=== PATIENT | male | born 1980 | race Caucasian/White ===

== ENCOUNTER 2016-09-28 21:00 | Emergency (ER) | payer OTHER ==
[~2016-09-28] VITALS: Ht 175.3 cm; Wt 100.0 kg
[~2016-09-28 21:00] MED LIST: ALBU8.5H2 INHALATION
[2016-09-28 21:01] VITALS: BP 157/91; RESP 20; O2SAT 98
--- NOTE | 2016-09-28 21:05 | ED.REPORT ---
HPI-General Illness Date of Service Sep 28, 2016 ED Provider: Aries Seals MD Patient is a 36 year old male with a history of asthma who presents to the ED complaining throat swelling after eating dinner tonight, following 6 months of difficulty swallowing. Tonight, the patient ate a gyro and and something became stuck in his throat. He states that his throat became irritated and it now feels swollen. Patient is able to swallow his own saliva and is able to drink fluids, however they go down slowly. He reports difficulty breathing, as if he is having an asthma attack. Patient states that he often has difficulty swallowing food and that it sometimes becomes stuck in his throat. Patient reports having to vomiting in the past due to food becoming stuck in his throat. He reports eating less for the past 6 months due to discomfort and effort, and he states that he has lost a small amount of weight. There are certain foods that he now avoids eating, like steak, and he chews his food excessively. Patient reports previously struggling with heartburn, but states that it has not been an issue for the past year and he has not needed to take any medication for it. He denies a family history of esophageal cancer or any other relevant medical issues. The patient states that he chews tobacco but he is a nonsmoker Nursing Notes Stated Complaint: SWOLLEN THROAT Chief Complaint: ENT & Mouth Nursing Notes Reviewed: Yes Allergies: Coded Allergies: No Known Allergies (Unverified , 08/23/16) Scheduled Albuterol HFA (Proair HFA) 8.5 Gm Hfa.aer.ad 2 PUFFS INHALATION Q4H Lansoprazole ODT (Prevacid ODT) 30 Mg Tablet 30 MG PO BIDAC General Time Seen by MD: 21:05 Chief Complaint Other (difficulty swallowing) Hx Obtained From: Patient Arrived By: Walk-in Sudden in Onset?: No Onset Occurred: More than a week ago... (>6 months, worse in severity today) Symptom Duration: Waxes and wanes Severity: Current: No pain currently Severity: Maximum: Mild Recent Healthcare: No recent doctor visit, No recent hospitalization Similar Sx Previous: Yes Past Medical History Past Medical History acid reflux Reports: Asthma Past Surgical History denies Smoking History Never Smoker Social History Risk factors for HIV exposure: Admits to using IV drugs 1x time 8 years ago, clean needle. Patient admits to having unprotected sex with females, but no prostitutes or male. 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 Physical Exam Vital Signs Vital Signs Date Time Temp Pulse Resp B/P Pulse Ox O2 Delivery O2 Flow Rate FiO2 09/28/16 22:17 16 98 Room Air 09/28/16 21:01 37.2 73 20 157/91 98 Room Air Initial VS: Reviewed Extremities: Vascular intact, Neuro intact Skin: Warm, Dry, No cyanosis Neurologic: Alert, Oriented, Nonfocal Psychiatric: Mood/affect normal, Behavior normal, Normal thought content General/Constitutional: Awake, Alert, No acute distress Head / Eyes: Atraumatic, Normocephalic, PERRL ENT: Airway patent Pharynx / Tonsils / Uvula: Positive: Pharyngeal erythema (minimally red) pharynx is mobile and symmetric Neck: Supple, No adenopathy, No masses Respiratory / Chest: Breath sounds NL, Breath sounds = bilat, No respiratory distress, No rales, No rhonchi, No wheezing, No stridor Cardiovascular: Heart rate NL, Regular rhythm, Heart sounds NL Interpretation & Diagnostics Lab Results Interpretation Result Diagram: 09/28/16212909/28/162129 Test 09/28/16 21:30 09/28/16 21:43 White Blood Count 7.4th/mm3 (3.8-10.1) Red Blood Count 5.16mil/mm3 (4.40-5.80) Hemoglobin 15.7g/dL (13.8-17.2) Hematocrit 43.4% (41.0-50.0) Mean Corpuscular Volume 84.1fL (81-100) Mean Corpuscular Hemoglobin 30.4pg (27.0-35.0) Mean Corpuscular Hemoglobin Concent 36.2% (32.0-37.0) Red Cell Distribution Width 12.4% (12.3-15.4) Platelet Count 210bil/L (150-400) Neutrophils (%) (Auto) 59.7% (40-74) Lymphocytes (%) (Auto) 24.9% (14-46) Monocytes (%) (Auto) 11.0% (4-12) Eosinophils (%) (Auto) 3.5% (0-5) Basophils (%) (Auto) 0.8% (0-3) Erythrocyte Sedimentation Rate 1mm/hr (0-15) Sodium Level 142mEq/L (134-144) Potassium Level 4.0mEq/L (3.5-5.2) Chloride Level 105mEq/L (97-108) Carbon Dioxide Level 22mmol/L (18-29) Blood Urea Nitrogen 15mg/dL (6-20) Creatinine 0.92mg/dL (0.76-1.27) Estimat Glomerular Filtration Rate 99mL/min (>59) Glucose Level 101mg/dL (60-99) Calcium Level 9.6mg/dL (8.5-10.1) Total Bilirubin 0.3mg/dL (0.0-1.2) Aspartate Amino Transf (AST/SGOT) 23U/L (0-50) Alanine Aminotransferase (ALT/SGPT) 23U/L (0-44) Alkaline Phosphatase 83U/L (25-150) Total Protein 7.6g/dL (6.4-8.4) Albumin 4.7g/dL (3.4-5.0) X-Ray Chest Interpretation Chest Xray Interpretation: IMPRESSION: No acute disease Dictated by: Silver Coleman M.D. on 09/28/2016 at 21:59 Approved by: Silver Coleman M.D. on 09/28/2016 at 21:59 Interpretation / Wet Read by: Interpret - ED physician Re-Eval/Medical Decision Med Decision/Clinical Course 36-year-old with progressive dysphagia and odynophagia, presents without prior medical care. He needs upper endoscopy as soon as that can be arranged. Discussed with gastroenterology will see him next week. Baseline labs are pending including HIV study, inflammatory screen, and security has a resulted CMP and CBC that are unremarkable. He is begun with Prevacid at double dose using orally dissolving tablets, and will call gastroenterology this morning. Referred also to Dr. Mayo for primary care. Source of Hx: Old records Time of Eval: 21:23 Patient Status: Condition improved Re-Evaluation/Progress Note: Rechecked the patient, who was informed of the conversation with GI. Questioned him further about several risk factors that GI wished to know, re HIV status. Patient denies homosexual sexual encounters. He admits to having unprotected sex with women, but not with prostitutes. He admits to 1x injection drug use 8 years ago with a new needle, no other IV drug use. Will order labs and give him medications in the ED. Time of Eval: 22:10 Patient Status: Condition improved Re-Evaluation/Progress Note: No acute problem on chest x-ray or labs. Patient understands and agrees with the plan to be discharged home. Discharge instructions and follow-up discussed. All questions were addressed. Return to the ED warnings given. Consultation : Referral / Consult Name: Anny Herzog MD Consulted With: On-call physician (LUCHO) Call Returned at: 21:20 Jack Spinner: Will see patient, Will see in office, Agrees with eval, Agrees with plan Note: Spoke with LUCHO Joshua, about the patient's case. He suggests dissolvable prevacid for the patient's symptoms and will see him in the office. Counseled Regarding: Diagnosis, Lab results, Need for follow-up, When/why to return to ED Discharge & Departure Primary Impression: Dysphagia Dysphagia type: unspecified Qualified Code: R13.10 - Dysphagia, unspecified Disposition: Home Discharge Condition All VS Reviewed: Yes Condition: Stable Patient Instructions: Chronic Dysphagia (ED) Additional Instructions: Take Prevacid solu-tab twice daily. After two weeks, you can substitute omeprazole tablets, which can be bought [id number]. Follow-up with GI. Call tomorrow and tell the cvor nurse that I spoke with the tire builder operator, and he expects to see you in the very near future. Follow-up with local physician. See referral information below. Return if any immediate issues. Referrals: Anny Herzog MD AndKen rajan Attestation Portions of this note were transcribed by Kriss Cleary. I, Dr. Seals personally performed the history, physical exam and medical decision-making; I reviewed and confirmed the accuracy of the information in the transcribed note. Signed by: Delaney Elizabeth, 09/28/2016 2213 copies to: Anny Herzog MD; Ken Mayo Christopher W MD Sep 28, 2016 21:05 Kriss Cleary Sep 28, 2016 21:31
[2016-09-28] MEDS ORDERED: Dexamethasone 20 mg/2 mL Oral Solution PO ONE (21:30)
[2016-09-28] MEDS ORDERED: Pantoprazole 4 mg/mL 10 mL Inj IVPUSH ONE (21:30)
[2016-09-28] MEDS ORDERED: LANS30TA4 PO (21:37)
--- NOTE | 2016-09-28 21:59 | DRSVH ---
PROCEDURE: X-RAY CHEST ONE VIEW ([id number]) INDICATIONS: dysphagia TECHNIQUE: One view of the chest was acquired. COMPARISON: None. FINDINGS: Surgical changes and devices: None. Lungs and pleura: No pleural effusions or pneumothorax. Lungs are clear. Mediastinum: Mediastinal contours appear normal. Heart size is normal. Bones and chest wall: No suspicious bony lesions. Overlying soft tissues appear unremarkable. IMPRESSION: No acute disease Dictated by: Silver Coleman M.D. on 09/28/2016 at 21:59 Approved by: Silver Coleman M.D. on 09/28/2016 at 21:59
[2016-09-28 22:00] LABS: BASOPHILS % (AUTO) 0.8 % (0-3); EOSINOPHILS % (AUTO) 3.5 % (0-5); Mean Corpuscular Hemoglobin 30.4 pg (27.0-35.0); Mean Corpuscular Volume 84.1 fL (81-100); NEUTROPHILS % (AUTO) 59.7 % (40-74); Platelet Count 210 bil/L (150-400)
[2016-09-28 22:17] VITALS: RESP 16; O2SAT 98
[2016-09-28 22:35] LABS: ERYTHROCYTE SEDIMENTATION RATE 1 mm/hr (0-15)
== END 2016-09-28 22:18 | disposition home or self-care (01) ==
LOC: SED 21:40
DX: R13.10 Dysphagia, unspecified (principal); R06.09 Other forms of dyspnea; J45.909 Unspecified asthma, uncomplicated; K21.9 Gastro-esophageal reflux disease without esophagitis; F17.220 Nicotine dependence, chewing tobacco, uncomplicated
CPT/HCPCS: 36415; 71010; 80053; 85025; 85651; 86038; 96374; 99284; G0433